=== PATIENT | male | born 1955 | race Caucasian/White ===

== ENCOUNTER 2019-05-10 18:19 | Emergency (ER) | payer MEDICAID ==
[~2019-05-10] VITALS: Ht 175.3 cm; Wt 90.0 kg
[~2019-05-10 18:19] MED LIST: ASPI81TA52 PO; ATOR10TA87 PO; BUPR-344 PO; BUPR-72 PO; BUPR150T6 PO; BUSP10TA11 PO; BUSP15TA3 PO; LEVO125T8 PO; LISI-642 PO; MIRT15TA PO; MIRT45TA79 PO; NOVRI SQ; PRAZ2CAP2 PO; QUET-1 PO; QUET25TA PO; QUET400T12 PO
[2019-05-10 18:59] LABS: BASOPHILS # (AUTO) 0.1 X10'3 (0-0.2); BASOPHILS % (AUTO) 0.8 % (0-1); EOSINOPHILS # (AUTO) 0.1 X10'3 (0-0.9); EOSINOPHILS % (AUTO) 0.7 % (0-6); HEMATOCRIT 42.6 % (42.0-52.0); HEMOGLOBIN 15.1 g/dl (14.0-17.9); LYMPHOCYTES # (AUTO) 1.2 X10'3 (1.1-4.8); LYMPHOCYTES % (AUTO) 12.6 % (21-51); MEAN CORPUSCULAR HEMOGLOBIN 32.6 PG (27.0-31.0); MEAN CORPUSCULAR HGB CONC 35.4 g/dL (33.0-36.5); MEAN PLATELET VOLUME 7.9 FL (7.4-10.4); MONOCYTES # (AUTO) 0.9 X10'3 (0-0.9); MONOCYTES % (AUTO) 8.6 % (2-12); NEUTROPHILS # (AUTO) 7.6 X10'3 (1.8-7.7); NEUTROPHILS % (AUTO) 77.3 % (42-75); PLATELET COUNT 252 X10'3 (140-440); RED BLOOD COUNT 4.63 X10'6 (4.70-6.10); RED CELL DISTRIBUTION WIDTH 12.5 % (11.5-14.5); WHITE BLOOD COUNT 9.9 X10'3 (4.5-11.0)
[2019-05-10 19:09] LABS: ALANINE AMINOTRANSFERASE 124 U/L (12-78); ALBUMIN 3.7 G/DL (3.4-5.0); ALBUMIN/GLOBULIN RATIO 1.1 (1.1-1.5); ALKALINE PHOSPHATASE 74 IU/L (46-116); ANION GAP 13 (8-16); ASPARTATE AMINO TRANSFERASE 57 U/L (10-37); BILIRUBIN,TOTAL 0.3 MG/DL (0.1-1.0); BLOOD UREA NITROGEN 18 MG/DL (7-18); BUN/CREATININE RATIO 15.5 (5.4-32.0); CALCIUM 9.1 MG/DL (8.5-10.1); CHLORIDE 99 MMOL/L (99-107); CREATININE 1.16 MG/DL (0.60-1.10); ETHANOL < 0.010 GM/DL (0.0-0.010); POTASSIUM 4.2 MMOL/L (3.5-5.1); SODIUM 134 MMOL/L (135-145); TOTAL CARBON DIOXIDE 21.6 MMOL/L (24-32); TOTAL PROTEIN 7.1 G/DL (6.4-8.2); eGFR 64 ML/MIN
[2019-05-10 19:11] LABS: ACETAMINOPHEN < 2.0 UG/ML (10-30); GLUCOSE 465 MG/DL (70-104)
[2019-05-10] MEDS ORDERED: INSU100V9 (19:25)
--- NOTE | 2019-05-10 19:27 | NUR ---
Dr. Azul is preparing the discharge instructions and requested charge nurse to obtain transportation for the patient back to [place] where he resides. Pt given his clothes is preparation for discharge from the ED.
[2019-05-10 20:30] VITALS: BP 145/74
== END 2019-05-10 19:38 | disposition home or self-care (01) ==
LOC: ER 18:19
DX: Z76.5 Malingerer [conscious simulation] (principal); R73.9 Hyperglycemia, unspecified; F32.9 Major depressive disorder, single episode, unspecified; Z88.8 Allergy status to other drugs, medicaments and biological substances; Z79.4 Long term (current) use of insulin; Z79.899 Other long term (current) drug therapy
CPT/HCPCS: 36415; 80053; 80320; 80329; 85025; 99283